=== PATIENT | male | born 1950 | race Caucasian/White ===

== ENCOUNTER 2018-02-05 13:36 | Emergency (ER) | payer OTHER ==
--- NOTE | 2018-02-05 14:01 | EDPHY ---
H & P Time Seen by Provider: 02/05/18 13:41 HPI/ROS: CHIEF COMPLAINT: Facial injury HISTORY OF PRESENT ILLNESS: Patient was walking on a sidewalk in [place], he tripped over a sign and fell landing on a metal electrical box. He has lacerations to his face. He denies loss of consciousness. He denies dental trauma. He is not on blood thinners. He states his vaccination for tetanus is up-to-date. REVIEW OF SYSTEMS: Negative except per HPI. General Appearance: Alert, no distress. Eyes: Pupils equal and round no icterus ENT: Large lip laceration upper left, includes vermilion border. Upper frenulum is torn, macerated with laceration to labial mucosa. Epistaxis left nare, no septal hematoma. Respiratory: No respiratory distress Neurological: Awake, alert, no focal deficits. Skin: Warm and dry, no rashes. Abrasions to right upper extremity and right knee. Musculoskeletal: Neck is supple nontender. No bony tenderness. Movement, strength, sensation intact all 4 extremities. Extremities are symmetrical, full range of motion, no edema. Psychiatric: Patient is oriented X 3, there is no agitation. Smoking Status: Never smoked Constitutional: Initial Vital Signs Temperature (C) 36.5 C 02/05/18 13:43 Heart Rate 67 02/05/18 13:43 Respiratory Rate 22 H 02/05/18 13:43 Blood Pressure 137/87 H 02/05/18 13:43 O2 Sat (%) 94 02/05/18 13:43 O2 Delivery Mode Room Air Allergies/Adverse Reactions: No Known Allergies Allergy (Verified 02/05/18 13:43) Home Medications: Medication Instructions Recorded Antidepressant 02/05/18 Remeron 02/05/18 Statin 02/05/18 Medical Decision Making ED Course/Re-evaluation: Procedure: Milagros border laceration Repair. Verbal consent was obtained from the patient. The the complex, full thickness 3.5 laceration of the lip, measured by the extent of the laceration on the skin was anesthetized in the usual fashion. Five mils 2% lidocaine with epi used. The wound extends past the milagros border. The wound was cleaned per protocol, draped and explored to its base with a gloved finger. The milagros border was closed with good approximation of the edges. The wound was repaired with 4 0 Vicryl and 5 0 Prolene. Multilayer repair done with Vicryl used on the mucosal surface. Three deep sutures used to repair muscle tissue, skin closed with 5 0 Vicryl. The procedure was performed by myself. Differential Diagnosis: Differential diagnosis includes but is not limited to facial laceration, dental trauma, nasal fracture, concussion, other musculoskeletal injury. Patient with complex upper lip laceration repaired as documented above. No evidence of dental trauma or face fracture. Not on anticoagulation and bleeding controlled with direct pressure in the emergency department. Discussed wound care, signs symptoms of infection on a timing for suture removal and return precautions. Stable for discharge. Tetanus vaccination up-to-date report. Departure - Departure Clinical Impression: Laceration of face with complication Qualifiers: Encounter type: initial encounter Qualified Code(s): S01.81XA - Laceration without foreign body of other part of head, initial encounter Condition: Good Instructions: Laceration (ED) Additional Instructions: Keep area clean, apply antibiotic ointment to the skin surfaces. Cleaned the mouth surfaces with peroxide mixed with water half and half. Soft foods for the next several days. Rinse mouth well after eating to avoid food caught in laceration recesses. Do not blow your nose. Avoid hot liquids for the next 48 hr. Return to the emergency department if you're concern of infection including increased pain, redness, swelling or pus. Suture removal in 7 days, this is the blues sutures only. The white sutures will dissolve on their own and do not need to be removed. Referrals: NONE *PRIMARY CARE P,. [Primary Care Provider] - As per Instructions
[2018-02-05 15:56] VITALS: BP 125/78
== END 2018-02-05 15:56 | disposition home or self-care (01) ==
LOC: CED 13:36
PROC: 0CQ0XZZ Repair Upper Lip, External Approach (ICD-10-PCS; principal; 2018-02-05)
DX: S01.511A Laceration without foreign body of lip, initial encounter (principal); W01.0XXA Fall on same level from slipping, tripping and stumbling without subsequent striking against object, initial encounter; Y99.8 Other external cause status; Y93.01 Activity, walking, marching and hiking